=== PATIENT | male | born 1965 | race Caucasian/White ===

== ENCOUNTER 2016-06-18 09:21 | Day surgery (SDC) ==
--- NOTE | 2016-06-13 16:49 | EKG Report ---
Test Performed on : 06/13/2016 1:42:38 PM Test Reason : PAT Blood Pressure : / mmHG Vent. Rate : 098 BPM Atrial Rate : 098 BPM P-R Int : 162 ms QRS Dur : 086 ms QT Int : 342 ms P-R-T Axes : 066 -08 058 degrees QTc Int : 436 ms Normal sinus rhythm. Normal ECG When compared with ECG of 12-OCT-2014 12:21, No significant change was found Confirmed by Rodri Barrientos MD ([id number]) on 06/15/2016 12:33:55 PM
[2016-06-18] MEDS ORDERED: LR 1,000 ML ONE ×2 (09:43→15:02)
[2016-06-18] MEDS ORDERED: PEPCID ONE (09:43)
[2016-06-18] MEDS ORDERED: KEFZOL 2 GM/D5W 50 ML ONE (09:43)
[2016-06-18] MEDS ORDERED: REGLAN ONE (09:43)
[2016-06-18] MEDS ORDERED: NAROPIN 0.5% ONE (10:44)
[2016-06-18 10:46] LABS: HEMATOCRIT 45.4 % (42.0-52.0); HEMOGLOBIN 16.1 g/dL (14.0-18.0); MCH 29.7 PG (27-31); MCHC 35.5 g/dL (33-37); MCV 83.8 FL (81-99); MPV 9.1 FL (7.4-10.4); RBC 5.42 XMIL (4.7-6.1)
[2016-06-18] MEDS ORDERED: DUONEB (A & A) INH ONE ×2 (10:48→16:04)
[2016-06-18] MEDS ORDERED: DUONEB (A & A) ONE (11:50)
[2016-06-18] MEDS ORDERED: VERSED ONE ×2 (12:30→14:41)
[2016-06-18] MEDS ORDERED: LR 500 ML ONE (14:37)
[2016-06-18] MEDS ORDERED: MORPHINE ONE (14:40)
[2016-06-18] MEDS ORDERED: FENTANYL ONE (14:40)
[2016-06-18] MEDS ORDERED: DIPRIVAN 1% ONE (14:40)
[2016-06-18] MEDS: DILAUDID ONE ×2 (14:42→14:47)
[2016-06-18] MEDS ORDERED: NORCO-10 ONE ×2 (14:53→15:45)
[2016-06-18] MEDS ORDERED: SODIUM CHLORIDE 0.9% 10 ML ONE (15:01)
[2016-06-18] MEDS ORDERED: NORCURON ONE (15:01)
[2016-06-18] MEDS ORDERED: ZOFRAN ONE (15:01)
[2016-06-18] MEDS ORDERED: NEOSTIGMINE ONE (15:01)
[2016-06-18] MEDS ORDERED: LUBRIFRESH PM OPH OINTMENT ONE (15:01)
[2016-06-18] MEDS ORDERED: ROBINUL ONE (15:01)
[2016-06-18] MEDS ORDERED: XYLOCAINE-MPF 2% ONE (15:01)
[2016-06-18] MEDS ORDERED: LABETALOL (DOSE) ONE (15:01)
[2016-06-18] MEDS ORDERED: QUELICIN (DOSE) ONE (15:02)
[2016-06-18] MEDS ORDERED: OFIRMEV 1000 MG/ISOTONIC SOLN 100 ML ONE (15:02)
--- NOTE | 2016-06-18 15:08 | OPERATIVE NOTE ---
PROCEDURE DATE : 06/18/2016 PREOPERATIVE DIAGNOSIS: Impingement syndrome with possible rotator cuff tear, left shoulder. POSTOPERATIVE DIAGNOSIS: Impingement with large rotator cuff tear, left shoulder. SURGEON: Dr. Rhett Roca. CONE WINDER: VAUGHN Miller. ANESTHESIA: General. PROCEDURES: 1. Arthroscopic acromioplasty. 2. Distal clavicle resection. 3. Large rotator cuff repair arthroscopically with biceps tenotomy. COMPLICATIONS: None. PROCEDURE IN DETAIL: This 50-year-old male presents for arthroscopic evaluation of the left shoulder. Risks, benefits, and no guarantees were discussed and he was willing to proceed. He was taken to the operating room and satisfactory anesthesia obtained. The left shoulder was prepped and draped in usual sterile fashion. He was placed in the lateral position with all bony prominences padded. A time-out was taken to confirm operative site, procedure, and patient. The arm was then placed in 15 pounds of longitudinal traction, 30 degrees of forward elevation, and 30 degrees of abduction. Posterior portal was introduced in the glenohumeral joint and the arthroscopic visualization performed. A large tear of the supraspinatus was noted, measuring roughly 4 cm, with a "V" in the inner part. Also, significant degeneration of the biceps tendon long head was noted inside the joint. Some labral tearing superiorly and anteriorly was noted. An anterior portal was established and the labrum debrided back to stable border. A biceps tenotomy was performed with cautery wand and the biceps tendon released from inside the shoulder. The scope was repositioned in the subacromial space and a bursectomy performed through the lateral portal. With the scope viewing laterally and the shaver posteriorly, the type 2 acromion was converted to a type 1 flat acromion. The anterior AC portal was then utilized to resect the distal clavicle 5 to 7 mm. Afterwards, the rotator cuff footprint was debrided down to vascular bone. One margin convergent suture was placed with FiberWire at the apex to bring the tendon together. This was tied with arthroscopic knot tying techniques. Two [employer]hew anchors were then placed at the articular margins roughly 1.5 cm apart and 4 mattress sutures placed through the rotator cuff. This medial row was then tied using arthroscopic knot tying techniques. Each limb of the tie and anchor was then pulled laterally with 2 anchors laterally in a crisscrossing fashion to complete a [id number] double row fixation. Good taoism of the footprint without dog ear was noted. The excess suture was then cut off at that point. The shoulder was taken through a range of motion with good stability of the repair. The patient was then closed with 3-0 nylon sutures at the portals. Sterile dressings were applied and a shoulder abduction sling. The patient was recovered from anesthesia and transferred to the recovery room in stable condition. No intraoperative complications were noted. Instrument count and sponge count were correct at the time of closure.
[2016-06-18 16:53] VITALS: BP 135/87
== END 2016-06-18 16:40 | disposition home or self-care (01) ==
LOC: OPS 09:21
PROVIDERS: ATTEND Orthopaedic Surgery Adult Reconstructive Orthopaedic Surgery
DX: M75.122 Complete rotator cuff tear or rupture of left shoulder, not specified as traumatic (principal); M75.42 Impingement syndrome of left shoulder; F17.210 Nicotine dependence, cigarettes, uncomplicated
CPT/HCPCS: 85027; 93005; 93010; 94640; J0131; J0330; J0690; J1170; J2250; J2270; J2405; J2795; J3010; J7120; J2710